=== PATIENT | female | born 1995 | race Caucasian/White ===

== ENCOUNTER 2021-01-17 13:40 | Emergency (ER) | payer OTHER ==
[2021-01-17 13:48] VITALS: TEMP 98.7; BMI 31.7
[2021-01-17] MEDS ORDERED: METOCLOPRAMIDE HCL INJECTION 10 MG/2 ML VIAL IVPB ONE (14:25)
[2021-01-17] MEDS ORDERED: SODIUM CHLORIDE 1,000 ML IV STA (14:25)
[2021-01-17] MEDS ORDERED: METOCLOPRAMIDE HCL INJECTION 10 MG/2 ML VIAL ONE (14:43)
[2021-01-17 15:09] LABS: BASO % 0.2 % (0-2.0); EOS % 0.2 % (0-4.5); HEMATOCRIT 34.8 % (32.4-45.2); HEMOGLOBIN 11.5 GM/dL (10.7-15.3); LYMPH % 19.9 % (8-40); MCH 28.8 pg (25.7-33.7); MEAN CELL VOLUME 87.4 fl (80-96); MEAN PLT VOLUME 8.2 fl (7.5-11.1); MONO % 5.8 % (3.8-10.2); NEUT % 73.9 % (42.8-82.8); PLATELET COUNT 298 10^3/uL (134-434); RBC 3.99 M/mm3 (3.60-5.2); RDW 15.2 % (11.6-15.6); WHITE BLOOD COUNT 11.7 K/mm3 (4.0-10.0)
[2021-01-17 15:27] LABS: CALCIUM 9.2 mg/dL (8.5-10.1)
[2021-01-17 15:28] LABS: ALBUMIN 3.5 g/dl (3.4-5.0)
[2021-01-17 15:32] LABS: BILIRUBIN,TOTAL 0.2 mg/dL (0.2-1)
[2021-01-17 15:33] LABS: TOT PROT 7.4 g/dl (6.4-8.2)
[2021-01-17 15:34] LABS: PH,URINE 5.5 (5.0-8.0); URINE APPEARANCE Clear; URINE BILIRUBIN Negative (NEGATIVE); URINE COLOR Yellow; URINE GLUCOSE (UA) Negative (NEGATIVE); URINE KETONE 2+ (NEGATIVE); URINE LEUK ESTERASE 1+ (NEGATIVE); URINE NITRITE Negative (NEGATIVE); URINE PROTEIN Negative (NEGATIVE); URINE UROBILINOGEN 0.2 mg/dL (0.2-1.0)
[2021-01-17 15:35] LABS: CREATININE 0.4 mg/dL (0.55-1.3)
[2021-01-17 15:40] LABS: EPI CELLS 57.5 /uL (0-25.1); URINE BACTERIA 2870.3 /uL (0-1359); URINE RBC 21.4 /uL (0-23.9); URINE WBC 90.8 /uL (0-25.8)
[2021-01-17 16:06] VITALS: BP 120/82; PULSE 66
== END 2021-01-17 16:05 | disposition home or self-care (01) ==
LOC: JER 13:40
PROC: 3E033NZ Introduction of Analgesics, Hypnotics, Sedatives into Peripheral Vein, Percutaneous Approach (ICD-10-PCS; principal; 2021-01-17)
PROC: 3E0337Z Introduction of Electrolytic and Water Balance Substance into Peripheral Vein, Percutaneous Approach (ICD-10-PCS; 2021-01-17)
DX: O21.0 Mild hyperemesis gravidarum (principal)
CPT/HCPCS: 36415; 80053; 81003; 85025; 87086; 99284-25

== ENCOUNTER 2021-07-11 08:15 | Inpatient (IN) | payer OTHER ==
[2021-07-11] MEDS ORDERED: BUTORPHANOL TARTRATE 1 MG/ML VIAL IVPB ONE (08:58)
[2021-07-11] MEDS ORDERED: PROMETHAZINE HCL 25 MG/1 ML VIAL IVPUSH ONE (08:58)
[2021-07-11] MEDS: ELECTROLYTE-148 SOLN 1,000 ML IV SCH ×3 (09:15→18:07)
[2021-07-11] MEDS ORDERED: PROMETHAZINE HCL 25 MG/1 ML VIAL ONE (09:18)
[2021-07-11] MEDS ORDERED: BUTORPHANOL TARTRATE 2 MG/ML VIAL ONE (09:18)
[2021-07-11 09:48] VITALS: BMI 36.8
[2021-07-11 10:33] LABS: BASO % 0.3 % (0-2.0); EOS % 0.6 % (0-4.5); HEMATOCRIT 32.5 % (32.4-45.2); HEMOGLOBIN 11.1 GM/dL (10.7-15.3); LYMPH % 12.7 % (8-40); MCH 29.7 pg (25.7-33.7); MCHC 34.1 g/dl (32.0-36.0); MEAN CELL VOLUME 87.1 fl (80-96); MEAN PLT VOLUME 9.5 fl (7.5-11.1); MONO % 6.9 % (3.8-10.2); NEUT % 79.5 % (42.8-82.8); PLATELET COUNT 185 10^3/uL (134-434); RBC 3.74 M/mm3 (3.60-5.2); RDW 14.2 % (11.6-15.6)
[2021-07-11 10:39] LABS: INR 0.91 (0.83-1.09); PROTHROMBIN TIME (PATIENT) 10.6 SEC (9.7-13.0)
[2021-07-11 10:42] LABS: ACTIVATED PTT 24.4 SECONDS (25.2-36.5)
[2021-07-11 10:51] LABS: CALCIUM 8.7 mg/dL (8.5-10.1)
[2021-07-11 10:52] LABS: BLOOD UREA NITROGEN 12.1 mg/dL (7-18)
[2021-07-11 10:55] LABS: CREATININE 0.6 mg/dL (0.55-1.3)
[2021-07-11] MEDS ORDERED: FENTANYL/BUPIVACAINE/NS/PF - PCEA - 50 ML DISP.SYRIN EP ONE ×2 (11:37→16:00)
[2021-07-11] MEDS: FENTANYL/BUPIVACAINE/NS/PF - PCEA - 50 ML DISP.SYRIN EP SCH (12:15)
[2021-07-11] MEDS ORDERED: BUPIVACAINE HCL/PF 0.25% (2.5MG/ML) 10 ML VIAL ONE ×2 (12:22→14:17)
[2021-07-11] MEDS ORDERED: OXYTOCIN 30 UNITS in 0.9% NS 30 UNIT/500 ML INFUS.BAG IVPB SCH (13:15)
[2021-07-11] MEDS ORDERED: OXYTOCIN 30 UNITS in 0.9% NS 30 UNIT/500 ML INFUS.BAG IVPB ONE (14:11)
[2021-07-11] MEDS ORDERED: NALOXONE HCL 0.4 MG/ML VIAL IVPUSH PRN (15:34)
[2021-07-11] MEDS ORDERED: OXYTOCIN 20 UNITS in 0.9% NS 20 UNIT/1,000 ML INFUS.BAG IV ONE ×2 (15:37→22:12)
[2021-07-11] MEDS ORDERED: LIDOCAINE HCL 1% PRESERVATIVE FREE - 30ML VIAL ONE (17:39)
[2021-07-11] MEDS ORDERED: morphine SULFATE/PF 1 MG/2 ML (2cc Syringe - QUVA) ONE (19:57)
[2021-07-11] MEDS ORDERED: BENZOCAINE 28 GM HEMORRHOIDAL OINTMENT TP PRN (20:05)
[2021-07-11] MEDS ORDERED: SENNOSIDES/DOCUSATE COMBO (SENNA PLUS) TABLET (UD) PO PRN (20:05)
[2021-07-11] MEDS ORDERED: BENZOCAINE 20% 57 GM BOTTLE TP PRN (20:05)
[2021-07-11] MEDS ORDERED: METHYLERGONOVINE MALEATE 0.2 MG/1 ML AMP IM PRN (20:05)
[2021-07-11] MEDS ORDERED: ACETAMINOPHEN 325 MG TABLET (FP) PO PRN (20:05)
[2021-07-11] MEDS ORDERED: WITCH HAZEL 50% (TUCKS) 40 PAD/JAR PAD TP PRN (20:05)
[2021-07-11] MEDS ORDERED: OXYTOCIN 20 UNITS in 0.9% NS 20 UNIT/1,000 ML INFUS.BAG IV SCH (20:15)
[2021-07-11 21:30] LABS: CORD BASE EXCESS -6.7 mmol/L (0-2); CORD HCO3 20.5 mmHg (20-29); CORD PCO2 46.9 mmHg (30-78); CORD pH 7.258 (7.14-7.44)
[2021-07-11 21:33] LABS: CORD HCO3 22.1 mmHg (20-29); CORD PCO2 61.5 mmHg (30-78); CORD pH 7.174 (7.14-7.44)
[2021-07-12] MEDS ORDERED: DEXTROSE 5%-WATER - 50 ML IVPB ONE ×3 (01:17→16:33)
[2021-07-12] MEDS ORDERED: ceFAZolin SODIUM 1 GM VIAL ONE ×3 (01:18→16:33)
[2021-07-12] MEDS: CEFAZOLIN 1 GM in DEXTROSE 5%-WATER - 1 GM/50 ML IVPB IVPB SCH ×3 (01:22→17:00)
[2021-07-12] MEDS: IBUPROFEN 800 MG/8 ML IJ IVPB PRN ×2 (03:58→12:27)
[2021-07-12] MEDS ORDERED: oxyCODONE HCL 5 MG TABLET PO PRN ×2 (08:05)
[2021-07-12 08:16] LABS: BASO % 0.2 % (0-2.0); EOS % 0.1 % (0-4.5); HEMATOCRIT 27.8 % (32.4-45.2); HEMOGLOBIN 9.1 GM/dL (10.7-15.3); LYMPH % 11.6 % (8-40); MCHC 32.8 g/dl (32.0-36.0); MEAN CELL VOLUME 88.5 fl (80-96); MEAN PLT VOLUME 9.6 fl (7.5-11.1); MONO % 5.5 % (3.8-10.2); NEUT % 82.6 % (42.8-82.8); PLATELET COUNT 158 10^3/uL (134-434); RBC 3.14 M/mm3 (3.60-5.2); RDW 14.8 % (11.6-15.6); WHITE BLOOD COUNT 14.6 K/mm3 (4.0-10.0)
[2021-07-12] MEDS: PRENATAL VITAMINS W/ FOLIC ACID TABLET (FP) PO SCH (10:19)
[2021-07-12] MEDS: FERROUS SO4 325 MG TABLET (FP) PO SCH ×2 (10:19→16:37)
[2021-07-12] MEDS: IBUPROFEN 600 MG TABLET (FP) PO PRN (19:12)
[2021-07-12] MEDS: SIMETHICONE 80 MG TAB.CHEW (FP) PO PRN (19:12)
[2021-07-12] MEDS ORDERED: BISACODYL 10 MG SUPP.RECT RC PRN (20:05)
[2021-07-12] MEDS: FENTANYL/BUPIVACAINE/NS/PF - PCEA - 50 ML DISP.SYRIN EP SCH (23:47)
[2021-07-13 08:57] LABS: BASO % 0.2 % (0-2.0); EOS % 0.6 % (0-4.5); HEMATOCRIT 28.3 % (32.4-45.2); HEMOGLOBIN 9.3 GM/dL (10.7-15.3); LYMPH % 11.2 % (8-40); MCH 29.2 pg (25.7-33.7); MEAN CELL VOLUME 88.6 fl (80-96); MEAN PLT VOLUME 9.3 fl (7.5-11.1); MONO % 6.2 % (3.8-10.2); NEUT % 81.8 % (42.8-82.8); PLATELET COUNT 183 10^3/uL (134-434); RBC 3.19 M/mm3 (3.60-5.2); RDW 14.9 % (11.6-15.6); WHITE BLOOD COUNT 17.4 K/mm3 (4.0-10.0)
[2021-07-13] MEDS: FERROUS SO4 325 MG TABLET (FP) PO SCH ×2 (09:00→18:25)
[2021-07-13] MEDS: PRENATAL VITAMINS W/ FOLIC ACID TABLET (FP) PO SCH (09:58)
[2021-07-13] MEDS: AMOX TR/POT CLAV 500MG/125MG TABLETS (FP) PO SCH ×2 (09:58→18:25)
[2021-07-13] MEDS: IBUPROFEN 600 MG TABLET (FP) PO PRN ×3 (09:58→21:55)
[2021-07-13] MEDS: SIMETHICONE 80 MG TAB.CHEW (FP) PO PRN ×2 (09:58→15:07)
[2021-07-14 08:44] LABS: BASO % 0.2 % (0-2.0); HEMATOCRIT 26.1 % (32.4-45.2); HEMOGLOBIN 8.6 GM/dL (10.7-15.3); MCH 29.1 pg (25.7-33.7); MCHC 32.9 g/dl (32.0-36.0); MEAN CELL VOLUME 88.3 fl (80-96); MEAN PLT VOLUME 8.8 fl (7.5-11.1); MONO % 5.5 % (3.8-10.2); NEUT % 79.3 % (42.8-82.8); PLATELET COUNT 185 10^3/uL (134-434); RBC 2.95 M/mm3 (3.60-5.2); RDW 14.7 % (11.6-15.6)
[2021-07-14] MEDS: PRENATAL VITAMINS W/ FOLIC ACID TABLET (FP) PO SCH (09:23)
[2021-07-14] MEDS: AMOX TR/POT CLAV 500MG/125MG TABLETS (FP) PO SCH (09:23)
[2021-07-14] MEDS: FERROUS SO4 325 MG TABLET (FP) PO SCH (09:23)
[2021-07-14] MEDS: IBUPROFEN 600 MG TABLET (FP) PO PRN ×2 (09:23→15:12)
[2021-07-14 15:49] VITALS: BP 124/82; PULSE 73; TEMP 98.3
== END 2021-07-14 17:30 | disposition home or self-care (01) | DRG 788 ==
LOC: JDEL 08:15 → JLDR 08:50 → JDEL 08:53 → JLDR 09:00 → J3W 23:36
PROVIDERS: ADMIT Obstetrics & Gynecology; ATTEND Obstetrics & Gynecology
PROC: 10D00Z1 Extraction of Products of Conception, Low, Open Approach (ICD-10-PCS; principal; 2021-07-12)
DX: O62.0 Primary inadequate contractions (principal); Z3A.39 39 weeks gestation of pregnancy; Z37.0 Single live birth
CPT/HCPCS: 36415; 36600; 80048; 82803; 85025; 85610; 85730; 86780; 86850; 86900; 86901; 88307-TC; C9803; U0003; U0005